=== PATIENT | male | born 1995 | race Caucasian/White ===

== ENCOUNTER 2016-02-25 17:21 | Emergency (ER) | payer MEDICAID, SELFPAY | END 2016-02-25 19:17 | disposition home or self-care (01) | LOC: ER 17:21 ==

== ENCOUNTER 2016-02-29 12:00 | Emergency (ER) | payer MEDICAID | END 2016-02-29 14:54 | disposition home or self-care (01) | LOC: ER 13:07 | CPT/HCPCS: 36415; 80053; 81003; 84439; 84443; 85025; 85610 ==